=== PATIENT | male | born 1980 | race Caucasian/White ===

== ENCOUNTER 2017-01-25 17:38 | Emergency (ER) | payer BC, OTHER ==
[~2017-01-25] VITALS: Ht 167.6 cm; Wt 72.2 kg
[2017-01-25 20:04] VITALS: Ht 167.6 cm; Wt 72.2 kg
--- NOTE | 2017-01-25 20:41 | ERD ---
ER Documentation Chief Complaint Date/Time DATE: 01/25/17 TIME: 20:41 Chief Complaint LT CHEST PAIN DESCRIBED BURNING X 3 DAYS. NO SOB HPI 36-year-old male ambulatory in the ED complaining of a one-month history of intermittent, worsening, moderate moderate, burning epigastric pain that radiates to his left chest. For the last 3-4 days his symptoms been almost continuous. Symptoms seem to be worse at night while lying down and occasionally awakened from sleep. He also feels a sour taste in his mouth. No accompanied shortness of breath, nausea, vomiting or diaphoresis. No hematemesis, hematochezia or melanotic stools. No relieving or exacerbating factors. No leg pain or swelling. No hemoptysis. No URI symptoms or cough. No fevers or chills. ROS All systems reviewed and are negative except as per history of present illness. Medications Home Meds No Active Prescriptions or Reported Meds Allergies Allergies: Coded Allergies: No Known Allergy (Unverified , 01/25/17) PMhx/Soc Reviewed in chart. As per HPI. History of Surgery: No Anesthesia Reaction: Yes Hx Neurological Disorder: No Hx Respiratory Disorders: No Hx Cardiac Disorders: No Hx Psychiatric Problems: No Hx Miscellaneous Medical Probl: No Hx Alcohol Use: No Hx Substance Use: No Hx Tobacco Use: No FmHx No stroke or cancer no coronary artery disease or sudden cardiac Physical Exam Vitals Vital Signs Date Time Temp Pulse Resp B/P Pulse Ox O2 Delivery O2 Flow Rate FiO2 01/25/17 21:34 82 18 125/86 100 Room Air 01/25/17 20:04 98.1 86 16 120/78 98 Physical Exam Const: Alert, no acute distress. Head: Atraumatic Eyes: Normal Conjunctiva ENT: Normal External Ears, Nose and Mouth. Neck: Full range of motion. No JVD Resp: Clear to auscultation bilaterally Cardio: Regular rate and rhythm, no murmurs Abd: Soft, mild epigastric tenderness, non distended. Normal bowel sounds. No rebound or guarding. No right or left lower quadrant tenderness. No Rizvi' s sign or McBurney's point tenderness. No rebound or guarding. Skin: No petechiae or rashes Back: No midline or flank tenderness Ext: No cyanosis, or edema. No calf pain or swelling. Neur: Awake and alert. No focal deficit observed. Psych: Normal Mood and Affect Result Diagram: 01/25/17202901/25/172029 Results 24 hrs Laboratory Tests Test 01/25/17 20:30 Activated Partial Thromboplast Time 31.4Sec Alanine Aminotransferase (ALT/SGPT) 49IU/L Albumin 5.1g/dl Albumin/Globulin Ratio 1.18 Alkaline Phosphatase 66IU/L Anion Gap 23 Aspartate Amino Transf (AST/SGOT) 33IU/L Basophils # 0.110^3/ul Basophils % 0.6% Blood Urea Nitrogen 14mg/dl Calcium Level 10.1mg/dl Carbon Dioxide Level 29mmol/L Chloride Level 98mmol/L Creatinine 0.87mg/dl Direct Bilirubin 0.00mg/dl Eosinophils # 0.210^3/ul Eosinophils % 2.0% Globulin 4.30g/dl Glucose Level 93mg/dl Hematocrit 44.9% Hemoglobin 15.6g/dl INR International Normalized Ratio 0.91 Indirect Bilirubin 0.3mg/dl Lymphocytes # 3.610^3/ul Lymphocytes % 35.5% Mean Corpuscular Hemoglobin 28.7pg Mean Corpuscular Hemoglobin Concent 34.7g/dl Mean Corpuscular Volume 82.7fl Mean Platelet Volume 9.9fl Monocytes # 0.710^3/ul Monocytes % 7.1% Neutrophils # 5.510^3/ul Neutrophils % 54.0% Nucleated Red Blood Cells # 0.010^3/ul Nucleated Red Blood Cells % 0.0/100WBC Platelet Count 96960^3/UL Potassium Level 3.7mmol/L Prothrombin Time 12.2Sec Prothrombin Time Ratio 1.0 Red Blood Count 5.4310^6/ul Red Cell Distribution Width 12.0% Sodium Level 146mmol/L Total Bilirubin 0.3mg/dl Total Protein 9.4g/dl Troponin I < 0.012ng/ml White Blood Count 10.210^3/ul Current Medications Medications (Trade) Dose Ordered Sig/Bindu Route PRN Reason Start Time Stop Time Status Last Admin Dose Admin Pantoprazole (Protonix Iv) 40 mg ONCE ONCE IV 01/25/17 21:00 01/25/17 21:01 DC 01/25/17 21:06 Miscellaneous Medication (Gi Cocktail (2)) 40 ml ONCE ONCE PO 01/25/17 21:00 01/25/17 21:01 DC 01/25/17 21:06 EKG: Time: 18:21. Sinus rhythm with sinus arrhythmia. Ventricular rate 90, normal FL and QRS intervals. No acute ST segment elevation or depression. No axis deviation or ectopy. EP Impression: Normal EKG IMAGING: PROCEDURE: XR Chest. CLINICAL INDICATION: 36-year-old male with chest pain. TECHNIQUE: Single frontal view of the chest was obtained COMPARISON: No. FINDINGS: The soft tissues are normal. The bony elements are normal. The cardiomediastinal silhouette, pulmonary vasculature and hilar structures are normal. There is a left-sided aorta. The lungs are clear. The costophrenic angles are normal. IMPRESSION: 1. Normal chest x-ray. RPTAT:AAJJ Physician Awilda Date Time Electronically viewed and signed by Physician Awilda on 01/25/2017 20:56 JM/ Procedures/MDM DOCUMENTS REVIEWED: ED nurse no prior records ED COURSE: Protonix 40 mg IV, GI cocktail REEXAMINATION/REEVALUATION: Time: 22:30. Doing well. Symptoms completely resolved. Abdomen soft nontender [employer]-year-old male ambulatory in the ED complaining of a one-month history of intermittent, worsening, moderate moderate, burning epigastric pain that radiates to his left chest. Symptoms consistent with gastritis/GERD and possible peptic ulcer disease. No rebound, guarding or other signs of peritonitis. Likely related to GERD versus esophagitis. ALICIA score is 0. The considered differential acute coronary syndrome, myocardial infarction, aortic dissection and pulmonary embolism are unlikely. No radiographic evidence of pneumonia or pneumothorax. Symptoms completely resolved with antacids and proton pump inhibitors. Stable for discharge with precautionary instructions and outpatient follow-up within 72 hours for further risk stratification as counseled. Counseled patient regarding diagnostic workup, diagnosis and need for followup. Understands to return to ED if symptoms recur, worsen or any other concerns. Departure Diagnosis: Primary Impression: Abdominal pain, acute, epigastric Additional Impressions: Acute gastritis without bleeding Gastritis type: unspecified gastritis Qualified Code: K29.00 - Acute gastritis without hemorrhage, unspecified gastritis type GERD (gastroesophageal reflux disease) Esophagitis presence: with esophagitis Qualified Code: K21.0 - Gastroesophageal reflux disease with esophagitis Chest pain of uncertain etiology Condition: JERAMY Morales MD Jan 25, 2017 20:41
[2017-01-25 20:50] LABS: ADD SCAN DIFF NO
[2017-01-25 20:53] LABS: BASOPHIL # 0.1 10^3/ul (0.0-0.1); BASOPHILS % 0.6 % (0.0-2.0); EOSINOPHILS # 0.2 10^3/ul (0.0-0.5); HEMATOCRIT 44.9 % (42.0-52.0); HEMOGLOBIN 15.6 g/dl (14.0-18.0); LYMPHOCYTES # 3.6 10^3/ul (0.8-2.9); LYMPHOCYTES % 35.5 % (15.0-51.0); MEAN CORPUSCULAR HEMOGLOBIN 28.7 pg (29.0-33.0); MEAN CORPUSCULAR HGB CONC 34.7 g/dl (32.0-37.0); MEAN CORPUSCULAR VOLUME 82.7 fl (82.0-101.0); MEAN PLATELET VOLUME 9.9 fl (7.4-10.4); MONOCYTE # 0.7 10^3/ul (0.3-0.9); MONOCYTES % 7.1 % (0.0-11.0); NEUTROPHIL # 5.5 10^3/ul (1.6-7.5); PLATELET COUNT 388 10^3/UL (140-415); RED BLOOD COUNT 5.43 10^6/ul (4.70-6.10); WHITE BLOOD COUNT 10.2 10^3/ul (4.8-10.8)
--- NOTE | 2017-01-25 20:57 | RADRPT ---
PROCEDURE: XR Chest. CLINICAL INDICATION: 36-year-old male with chest pain. TECHNIQUE: Single frontal view of the chest was obtained COMPARISON: No. FINDINGS: The soft tissues are normal. The bony elements are normal. The cardiomediastinal silhouette, pulmo nary vasculature and hilar structures are normal. There is a left-sided aorta. The lungs are clear. The costophrenic angles are normal. IMPRESSION: 1. Normal chest x-ray. RPTAT:AAJJ Physician Awilda Date Time Electronically viewed and signed by Aleksandar Garg Physician on 01/25/2017 20:56 DAVIDE/
[2017-01-25] MEDS ORDERED: LIDOCAINE/MYLANTA 40 ML BTL PO ONE (21:00)
[2017-01-25] MEDS ORDERED: PANTOPRAZOLE 40 MG INJ IV ONE (21:00)
[2017-01-25 21:07] LABS: ALBUMIN 5.1 g/dl (3.3-4.9); CHLORIDE 98 mmol/L (97-110); SODIUM 146 mmol/L (135-144)
[2017-01-25 21:08] LABS: INR 0.91; POTASSIUM 3.7 mmol/L (3.5-5.1); PROTIME 12.2 Sec (12.2-14.2)
[2017-01-25 21:09] LABS: PARTIAL THROMBOPLASTIN TIME 31.4 Sec (25.0-35.0)
[2017-01-25 21:10] LABS: ALANINE AMINOTRANSFERASE 49 IU/L (13-69); ALBUMIN/GLOBULIN RATIO 1.18; ALKALINE PHOSPHATASE 66 IU/L (42-121); ANION GAP 23 (8-16); ASPARTATE AMINO TRANSFERASE 33 IU/L (15-46); BILIRUBIN,INDIRECT 0.3 mg/dl (0-1.1); BILIRUBIN,TOTAL 0.3 mg/dl (0.2-1.3); BLOOD UREA NITROGEN 14 mg/dl (7-20); CARBON DIOXIDE 29 mmol/L (21-31); CREATININE 0.87 mg/dl (0.61-1.24); TOTAL PROTEIN 9.4 g/dl (6.1-8.1)
[2017-01-25 21:11] LABS: CALCIUM 10.1 mg/dl (8.4-10.2); GLUCOSE 93 mg/dl (70-220)
[2017-01-25 21:34] LABS: TROPONIN-I < 0.012 ng/ml (0.00-0.12)
[2017-01-25] MEDS ORDERED: PANT40TA3 PO (22:52)
[2017-01-25 23:18] VITALS: BP 113/81; PULSE 82; RESP 16
== END 2017-01-25 23:30 | disposition home or self-care (01) ==
LOC: E/R 17:38
DX: R10.13 Epigastric pain (principal); K29.00 Acute gastritis without bleeding; K21.0 Gastro-esophageal reflux disease with esophagitis; R07.9 Chest pain, unspecified
CPT/HCPCS: 36415; 71010; 80053; 84484; 85025; 85610; 85730; 93005; 96374; C9113; Z7502; Z7610

== ENCOUNTER 2017-08-15 12:05 | Emergency (ER) | payer BC ==
[~2017-08-15] VITALS: Ht 157.5 cm; Wt 80.0 kg
[~2017-08-15 12:05] MED LIST: PANT40TA3 PO
[2017-08-15 12:07] VITALS: Ht 157.5 cm; Wt 80.0 kg
[2017-08-15] MEDS ORDERED: CEFTRIAXONE 1 GM/50 ML (PMX) 50 ML IVPB STA (13:43)
[2017-08-15] MEDS ORDERED: LIDOCAINE 1% (MDV) 20 ML INJ SC STA (13:43)
[2017-08-15] MEDS ORDERED: AMOX1TAB10 PO (13:46)
[2017-08-15] MEDS ORDERED: AMOXICILLIN/CLAV 875 MG TAB PO STA (13:46)
--- NOTE | 2017-08-15 13:57 | ERD ---
ER Documentation Chief Complaint Date/Time DATE: 08/15/17 TIME: 13:48 Chief Complaint right index cat bite HPI Is a 37-year-old male presenting to the emergency department complaining of a cat bite with moderate pain on his right index finger that occurred yesterday. Patient states that initially it was very swollen and the swelling has improved today. He denies fevers. Admits to having restricted range of motion ROS All systems reviewed and are negative except as per history of present illness. Medications Home Meds Active Scripts Amoxicillin/Potassium Clav (Amox-Clav 875-125 mg Tablet) 875-125 mg Tab, 1 TAB PO BID for 10 Days, #20 TAB Prov:SHARON FREED PA-C 08/15/17 Pantoprazole* (Protonix*) 40 Mg Tablet., 40 MG PO DAILY, #20 TAB Prov:JERAMY CHAIDEZ MD 01/25/17 Allergies Allergies: Coded Allergies: No Known Allergy (Unverified , 01/25/17) PMhx/Soc History of Surgery: No Anesthesia Reaction: Yes Hx Neurological Disorder: No Hx Respiratory Disorders: No Hx Cardiac Disorders: No Hx Psychiatric Problems: No Hx Miscellaneous Medical Probl: No Hx Alcohol Use: No Hx Substance Use: No Hx Tobacco Use: No Physical Exam Vitals Vital Signs Date Time Temp Pulse Resp B/P Pulse Ox O2 Delivery O2 Flow Rate FiO2 08/15/17 12:07 98.1 69 18 126/69 99 Physical Exam Const: WD/WN Head: Atraumatic Eyes: Normal Conjunctiva ENT: Normal External Ears, Nose and Mouth. Neck: Full range of motion..~ No meningismus. Resp: Clear to auscultation bilaterally Cardio: Regular rate and rhythm, no murmurs Abd: Soft, non tender, non distended. Normal bowel sounds Skin: Erythema bite pancho to the right index finger around the PIP region, restricted range of motion. Full DIP range of motion, restricted PIP Back: No midline or flank tenderness Ext: No cyanosis, or edema Neur: Awake and alert Psych: Normal Mood and Affect Results 24 hrs Current Medications Medications (Trade) Dose Ordered Sig/Bindu Route PRN Reason Start Time Stop Time Status Last Admin Dose Admin Ceftriaxone Sodium (Rocephin) 50 ml @ 100 mls/hr ONCE STAT IVPB 08/15/17 13:43 08/15/17 14:12 Lidocaine (Xylocaine 1% (Mdv) 20 ml) 20 ml ONCE STAT SC 08/15/17 13:43 08/15/17 13:45 DC Diphtheria/ Tetanus/Acell Pertussis (Adacel) 0.5 ml ONCE ONCE IM* 08/15/17 14:00 08/15/17 14:01 DC Amoxicillin/ Clavulanate Potassium (Augmentin) 875 mg ONCE STAT PO 08/15/17 13:46 08/15/17 13:48 DC Procedures/MDM This is a 37-year-old male presenting to the emergency department with a a cat bite to his right index finger from a Bite yesterday. Low suspicion for lymphangitis or flexor tenosynovitis at this time. On examination, patient had distal interphalangeal joint motion but restricted range of motion of the proximal region due to the swelling and where the bite was. There was no symmetric or fusiform swelling. He did not have significant pain with passive extension. Patient was given Rocephin in the ED and given a prescription for Augmentin as an outpatient. I discussed with him to present tomorrow for a wound check or sooner if his condition worsens. Patient is afebrile, stable and neurovascular intact to be discharged home. He agrees with plan and understands strict return precautions. Departure Diagnosis: Primary Impression: Cat bite Condition: Stable Patient Instructions: Cat Bite Additional Instructions: Return to this facility TOMORROW for a repeat exam.Return sooner if your condition worsens before then. Take all medicines as directed. Return to this facility if you are not improving as expected. SHARON FREED PA-C Aug 15, 2017 13:57
[2017-08-15] MEDS ORDERED: DIPHTH/TET/ACEL PERTUSS (ADULT) 0.5 ML VIAL IM* ONE (14:00)
[2017-08-15] MEDS ORDERED: CEFTRIAXONE 1 GM INJ IM ONE (16:30)
[2017-08-15] MEDS ORDERED: LIDOCAINE 1% (MDV) 20 ML INJ IM ONE (16:30)
[2017-08-15 17:31] VITALS: BP 122/71; PULSE 83; RESP 17; TEMP 98
== END 2017-08-15 17:32 | disposition home or self-care (01) ==
LOC: FTE 12:05
DX: S61.250A Open bite of right index finger without damage to nail, initial encounter (principal); W55.01XA Bitten by cat, initial encounter; Y92.9 Unspecified place or not applicable; Z23 Encounter for immunization
CPT/HCPCS: 90471; 90715; 96372; J0696; Z7502; Z7610